=== PATIENT | male | born 1970 | race Caucasian/White ===

== ENCOUNTER 2019-02-13 18:11 | Observation (INO) ==
[2019-02-13] MEDS ORDERED: Ondansetron 4 MG/2 ML VIAL IVP ONE (20:06)
[2019-02-13] MEDS ORDERED: 0.9 % Sodium Chloride 1,000 ML IVC ONE (20:06)
[2019-02-13] MEDS ORDERED: *HR* FentaNYL (PF) 100 MCG/2 ML VIAL IVP ONE (20:06)
--- NOTE | 2019-02-13 20:45 | Emergency Department Note ---
Disposition Clinical Impression: Epigastric pain Nausea and vomiting Qualifiers: Vomiting type: unspecified Vomiting Intractability: unspecified Qualified Code(s): R11.2 - Nausea with vomiting, unspecified Disposition: Still a Patient Condition: Fair Referrals: NONE,PCP [Primary Care Provider] - Forms: ED Satisfaction Letter Time of Disposition: 21:37 Nausea/Vomiting/Diarrhea HPI - General Chief complaint: ED Nausea/Vomiting/Diarrhea Stated complaint: N/V Dizzy Time Seen by Provider: 02/13/19 19:08 Source: patient Mode of arrival: ambulatory Limitations: no limitations Nursing Notes Reviewed: Yes - History of Present Illness HPI Narrative: 48-year-old male present to the emergency department with nausea vomiting and epigastric pain. Patient stated that this pain started about 23 days ago and continued to get worse. He is only medical problems he has history of a stroke does take gabapentin as well as Prilosec. He has not been taking his gabapentin or Prilosec for partially one month as he recently lost insurance has been unable to get the medication. He says he believes that the nausea and vomiting is tied to him not having his gabapentin as this happened one time before when he lost his medication. Patient states the epigastric pain as 6 out 10 nonradiating worse with palpation said it does not change whenever he eats food. Otherwise patient has no other complaints at this time. He has not noted any fevers says the vomiting is nonbilious and nonbloody. Patient otherwise has no other complaints. - Related Data Home Medications Medication Instructions Recorded Confirmed Aspirin 325 mg PO DAILY 12/21/17 02/13/19 Gabapentin [Neurontin] 300 mg PO TID 12/21/17 02/13/19 Allergies Allergy/AdvReac Type Severity Reaction Status Date / Time No Known Allergies Allergy Verified 02/13/19 18:28 All systems ED: reviewed and negative except as stated. Review of Systems: As Per HPI Past Medical History - Past Medical History Attestation: Yes The following information was validated with the patient. Source: patient Medical history: Reports: asthma, CVA, hyperlipidemia, hypertension, kidney stones Surgical history: Reports: arthroscopy, orthopedic, other Psychiatric history: Reports: no psych history - Social History Smoking Status: Current every day smoker Smokeless Tobacco Status: No Alcohol use: Reports: none Drug use: Reports: marijuana Physical Exam - General Limitations: no limitations General appearance: alert, in no apparent distress - Head Head exam: atraumatic, normocephalic, normal inspection - Eye Eye exam: Present: normal appearance, PERRL, EOMI - ENT ENT exam: normal exam, normal oropharynx, mucous membranes moist - Neck Neck exam: Present: normal inspection, full ROM, trachea midline - Chest Chest inspection: Present: normal inspection, symmetric chest wall rise - Respiratory Respiratory exam: Present: normal lung sounds bilaterally - Cardiovascular Cardiovascular exam: Present: regular rate, normal rhythm, normal heart sounds - Abdominal Exam Abdominal exam: Present: soft, Non-Tender. Absent: tenderness, distention, guarding, rebound, rigidity - Extremities Exam Extremities exam: Present: normal inspection, full ROM. Absent: tenderness, pedal edema - Expanded Lower Extremity Exam Neurovascular/Tendon exam: Present: normal capillary refill. Absent: pulse deficit, motor deficit, sensory deficit, tendon deficit - Back Exam Back exam: Present: normal inspection, full ROM. Absent: tenderness, CVA tenderness (R), CVA tenderness (L) - Neurological Exam Neurological exam: Present: alert, oriented X3 - Psychiatric Psychiatric exam: Present: normal affect, normal mood - Skin Skin exam: Present: warm, dry, intact, normal color Course Course Narrative: We will get basic labs including CBC, CMP, lipase as well as troponin EKG per we a CT abdomen and pelvis without contrast as well as CT head. We will give patient IV fluids, Zofran, fentanyl for his pain. EKG also done. Patient okay with this plan. Disposition is still pending results Vital Signs Temperature 98.5 F 02/13/19 18:27 Pulse Rate 97 02/13/19 18:27 Respiratory Rate 16 02/13/19 18:27 Blood Pressure 116/79 02/13/19 18:27 O2 Sat by Pulse Oximetry 98 02/13/19 18:27 Temperature 98.5 F 02/13/19 19:10 Pulse Rate 84 02/13/19 19:16 Respiratory Rate 15 02/13/19 19:16 Blood Pressure 125/89 02/13/19 19:16 O2 Sat by Pulse Oximetry 100 02/13/19 19:16 Oxygen Delivery Oxygen Delivery Room Air Nausea/Vomiting/Diarrhea - [facility] Narrative Medical decision making narrative: Patient is stable at this time. Not all labs are back as well as imaging at the time I am leaving patient will be signed out to Dr. Juarez. Please refer to his note for further plan and disposition. Patient stable at the time of sign out. - Medical Records Medical records reviewed: Yes I reviewed the patient's medical records. - Lab Data Lab results reviewed: Yes I reviewed the patient's lab results. Result diagrams: 02/13/19 20:24 02/13/19 20:24 Lab Results 02/13/19 Range/Units 20:24 Sodium 141 (136-145) mEq/L Potassium 3.4 L (3.5-5.1) mEq/L Chloride 101 (98-107) mEq/L Carbon Dioxide 29 (23-29) mEq/L BUN 20 (6-20) mg/dL Creatinine 1.11 (0.70-1.30) mg/dL Est GFR ( Amer) > 60 (> 60) Est GFR (Non-Af Amer) > 60 (> 60) BUN/Creatinine Ratio 18 (6-26) Glucose 106 H (70-105) mg/dL Calculated Osmolality 295 (280-300) Calcium 10.2 (8.6-10.3) mg/dL Magnesium 2.2 (1.6-2.6) mg/dL Total Bilirubin 0.6 (0.3-1.0) mg/dL AST 16 (13-39) Units/L ALT 15 (7-52) Units/L Alkaline Phosphatase 64 (34-104) Units/L Troponin I < 0.03 (< 0.04) ng/mL Serum Total Protein 7.9 (6.4-8.9) g/dL Albumin 4.9 (3.5-5.7) g/dL Globulin 3.0 (2.4-3.5) g/dL Albumin/Globulin Ratio 1.6 (1.1-2.2) Lipase 16 (11-82) Units/L - Radiology Data Radiology results reviewed: Yes I reviewed the patient's radiology results. - EKG Data EKG attestation: Yes I reviewed and interpreted this EKG. EKG results narrative: EKG done at 2037 review by myself and the attending shows sinus rhythm at a rate of 65, FL 137, QRS 83, QTC 416. No acute ST changes no acute T-wave changes no other signs of ischemia. No old EKG to compare with Attestation Statement - Attestation Attestation: I, Skip Juarez DO, examined this patient [id number] and my medical decision-making was reviewed with Dr. Roderick Muniz, Resident Physician. I agree with the documented findings, disposition and treatment plan as described except to the extent set forth below. I personally supervised and was present for the [place]/critical portions of the procedures completed by the resident documented below. Please see my progress notes for details.
[2019-02-13 21:01] LABS: Alanine Aminotransferase 15 Units/L (7-52); Albumin 4.9 g/dL (3.5-5.7); Albumin/Globulin Ratio 1.6 (1.1-2.2); Alkaline Phosphatase 64 Units/L (34-104); Aspartate Amino Transferase 16 Units/L (13-39); BUN/Creatinine Ratio 18 (6-26); Bilirubin,Total 0.6 mg/dL (0.3-1.0); Blood Urea Nitrogen 20 mg/dL (6-20); Calcium 10.2 mg/dL (8.6-10.3); Carbon Dioxide 29 mEq/L (23-29); Chloride 101 mEq/L (98-107); Glucose 106 mg/dL (70-105); Lipase 16 Units/L (11-82); Magnesium 2.2 mg/dL (1.6-2.6); Osmolality,Calculated 295 (280-300); Potassium 3.4 mEq/L (3.5-5.1); Sodium 141 mEq/L (136-145); Total Protein 7.9 g/dL (6.4-8.9); Troponin I < 0.03 ng/mL (< 0.04); eGFR For Non-African Americans > 60 (> 60)
[2019-02-13 21:17] LABS: Basophils % 0.2 %; Eosinophils % 0.1 %; Hemoglobin 17.5 g/dL (12.9-16.9); Immature Granulocytes % 0.2 % (0-4); Lymphocytes # 2.9 K/mcL (0.6-4.6); Lymphocytes % 24.1 %; Mean Corpuscular HGB Conc 34.3 g/dL (31.6-35.5); Mean Corpuscular Hemoglobin 31.1 pg (28.0-33.3); Mean Corpuscular Volume 90.7 fL (83.0-100.0); Mean Platelet Volume 9.4 fL (9.4-12.4); Monocytes # 0.9 K/mcL (0.0-1.3); Monocytes % 7.7 %; Neutrophils # 8.2 K/mcL (1.6-8.9); Platelet Count 296 K/mcL (140-400); Red Blood Count 5.62 M/mcL (4.19-5.50); Red Cell Distribution Width 12.4 % (11.5-14.5); Segmented Neutrophils % 67.7 %
--- NOTE | 2019-02-13 21:54 | Emergency Department Note ---
Disposition Clinical Impression: Epigastric pain, Enteritis, Ileus Nausea and vomiting Qualifiers: Vomiting type: unspecified Vomiting Intractability: unspecified Qualified Code(s): R11.2 - Nausea with vomiting, unspecified Disposition: Admitted As Inpatient Condition: Fair Referrals: NONE,PCP [Primary Care Provider] - Forms: ED Satisfaction Letter Time of Disposition: 22:25 General Adult HPI - General Chief complaint: ED Nausea/Vomiting/Diarrhea Stated complaint: N/V Dizzy Time Seen by Provider: 02/13/19 19:08 Source: patient Mode of arrival: ambulatory Limitations: no limitations - History of Present Illness Pain Scale: 3 - Related Data Home Medications Medication Instructions Recorded Confirmed Aspirin 325 mg PO DAILY 12/21/17 02/13/19 Gabapentin [Neurontin] 300 mg PO TID 12/21/17 02/13/19 Allergies Allergy/AdvReac Type Severity Reaction Status Date / Time No Known Allergies Allergy Verified 02/13/19 18:28 Past Medical History - Past Medical History Medical history: Reports: asthma, CVA, hyperlipidemia, hypertension, kidney stones Surgical history: Reports: arthroscopy, orthopedic, other Psychiatric history: Reports: no psych history - Social History Smoking Status: Current every day smoker Smokeless Tobacco Status: No Alcohol use: Reports: none Drug use: Reports: marijuana Physical Exam - General Limitations: no limitations General appearance: alert, in no apparent distress Course Vital Signs Temperature 98.5 F 02/13/19 18:27 Pulse Rate 97 02/13/19 18:27 Respiratory Rate 16 02/13/19 18:27 Blood Pressure 116/79 02/13/19 18:27 O2 Sat by Pulse Oximetry 98 02/13/19 18:27 Temperature 98.5 F 02/13/19 19:10 Pulse Rate 69 02/13/19 21:37 Respiratory Rate 15 02/13/19 19:16 Blood Pressure 119/71 02/13/19 21:37 O2 Sat by Pulse Oximetry 97 02/13/19 21:37 Oxygen Delivery Oxygen Delivery Room Air Medical Decision Making - Lab Data Result diagrams: 02/13/19 20:24 02/13/19 20:24 Lab Results 02/13/19 02/13/19 02/13/19 Range/Units 20:24 20:24 20:24 WBC 12.1 H (4.3-11.1) K/mcL RBC 5.62 H (4.19-5.50) M/mcL Hgb 17.5 H (12.9-16.9) g/dL Hct 51.0 H (37.5-50.1) % MCV 90.7 (83.0-100.0) fL MCH 31.1 (28.0-33.3) pg MCHC 34.3 (31.6-35.5) g/dL RDW 12.4 (11.5-14.5) % Plt Count 296 (140-400) K/mcL MPV 9.4 (9.4-12.4) fL Immature Gran % 0.2 (0-4) % Seg Neutrophils % 67.7 % Lymphocytes % 24.1 % Monocytes % 7.7 % Eosinophils % 0.1 % Basophils % 0.2 % Neutrophils # 8.2 (1.6-8.9) K/mcL Lymphocytes # 2.9 (0.6-4.6) K/mcL Monocytes # 0.9 (0.0-1.3) K/mcL Eosinophils # 0.0 (0.0-0.6) K/mcL Basophils # 0.0 (0.0-0.2) K/mcL Sodium 141 (136-145) mEq/L Potassium 3.4 L (3.5-5.1) mEq/L Chloride 101 (98-107) mEq/L Carbon Dioxide 29 (23-29) mEq/L BUN 20 (6-20) mg/dL Creatinine 1.11 (0.70-1.30) mg/dL Est GFR ( Amer) > 60 (> 60) Est GFR (Non-Af Amer) > 60 (> 60) BUN/Creatinine Ratio 18 (6-26) Glucose 106 H (70-105) mg/dL Calculated Osmolality 295 (280-300) Lactic Acid 1.5 (0.5-2.2) mmol/L Calcium 10.2 (8.6-10.3) mg/dL Magnesium 2.2 (1.6-2.6) mg/dL Total Bilirubin 0.6 (0.3-1.0) mg/dL AST 16 (13-39) Units/L ALT 15 (7-52) Units/L Alkaline Phosphatase 64 (34-104) Units/L Troponin I < 0.03 (< 0.04) ng/mL Serum Total Protein 7.9 (6.4-8.9) g/dL Albumin 4.9 (3.5-5.7) g/dL Globulin 3.0 (2.4-3.5) g/dL Albumin/Globulin Ratio 1.6 (1.1-2.2) Lipase 16 (11-82) Units/L Attestation Statement - Attestation Attestation: I, Skip Juarez DO, examined this patient [id number] and my medical decision-making was reviewed with Dr. Roderick Muniz, Resident Physician. I agree with the documented findings, disposition and treatment plan as described except to the extent set forth below. I personally supervised and was present for the [place]/critical portions of the procedures completed by the resident documented below. Please see my progress notes for details. 48-year-old male presents emergency room with onset of dizziness yesterday afternoon. Patient has had symptoms identical to this for the last 8 years since he had a carotid artery dissection that caused him to have a stroke. Patient denies any falls trauma or injury. He has not had any headache or vision change. Denies any nausea vomiting or diarrhea prior to the events yesterday. Denies any fevers or chills. He has not had anybody ill around him. No other acute complaints or symptoms at this time. Vital signs are stable. Patient is denying chest pain or shortness head is atraumatic. Pupils are equal round reactive. Extraocular muscles are intact. Oropharynx is patent. Trachea is midline. Patient has full range of motion of the upper and lower extremities. He has no cerebellar dysfunction or abnormality. Lungs are clear heart is regular. Abdomen is soft. No guarding no rigidity. Patient's neurologic evaluation is benign at this point. He is asymptomatic and has no di zziness on my evaluation. Fluids nausea medication have been provided. Screening CT imaging of the head along with labs include a CBC chemistry and electrodes will be collected at this time. Chest x-ray and EKG will be ordered. Disposition pending full workup and treatment course. See detailed documentation of the physical exam, medical intervention, medical decision- making and disposition in the resident physician's note. No critical care applied the patient's treatment course at this time. 2200 Patient has what appears to be enteritis versus ileus versus early small bowel obstruction on CT scan. Went back to discuss the findings with the patient he does disclose that he has not had a good bowel movement in 4 days. He has had no flatness today. Patient is otherwise stable and responded appropriately to fluids. CT imaging of the head is unremarkable. Discussion was had with the on-call surgeon Dr. Colbert. He agreed with admission of this time for fluid resuscitation nothing by mouth status to see the patient resolves. Recommendation was made for admission the hospital is because of other medical issues and a nonsurgical abdomen at this time. They are happy to see the patient in consult. Patient will be monitored here in emergency department to the hospitalist is contacted and admission process is completed. [id number] Patient was discussed with the hospitalist Dr. Urbina. Detailed review the presentation the symptoms and medical intervention were discussed. Potassium rider was ordered at this time. EKG was reviewed with stable sinus rhythm and no other acute pathology. CT imaging was discussed as well. No other immediate recommendations for workup or intervention were reviewed at this time. Patient will be monitored here in the emergency department until the admission process is completed for early small bowel obstruction versus enteritis and nothing by mouth status and management. Patient family were informed and they are comfortable with this disposition. No other acute issues at this time.
[2019-02-13] MEDS ORDERED: Potassium Chloride 20 MEQ, Lidocaine 1% 2 ML in D5% in Water 250 ML IVPB ONE (22:30)
[2019-02-13] MEDS: 0.9 % Sodium Chloride 1,000 ML IVC SCH (22:36)
[2019-02-14] MEDS: 0.9 % Sodium Chloride 1,000 ML IVC SCH ×2 (06:22→22:53)
--- NOTE | 2019-02-14 06:58 | AcuteCare Surgery Consult Note ---
<MisaelbronwynAllegra N - Last Filed: 02/14/19 07:51> Date of Encounter: 02/14/19 Time of Encounter: 06:46 Assessment and Plan (1) Enteritis Current Visit: Yes Status: Acute History and imaging reviewed with attending and patient was evaluated by acute care surgery team. There is evidence for regional enteritis on CT abdomen and pelvis with ileus versus partial small bowel obstruction. Patient's symptoms have been well controlled overnight, abdomen is benign and nonsurgical. He does report a bowel movement approximately 2 days ago and has a passed gas overnight. 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 Patient admits to large volu me, intractable, nonbloody, nonbilious emesis over the past 4 days. This was associated with epigastric pain and decreased appetite. Patient states similar symptoms when he had a prior carotid artery dissection and was concern for a CVA which prompted him to visit the emergency department. In the emergency department patient was hemodynamically stable. Labs showed hemoconcentration with a mildly elevated hemoglobin and white blood cell count, likely secondary to dehydration. A CT abdomen and pelvis was performed and significant for multiple loops of prominent jejunal small bowel in the left upper quadrant measuring up to 3.8 cm in diameter with air-fluid levels which may be related to enteritis with ileus versus partial small bowel obstruction. Patient was admitted to the hospital with acute care surgery consultation for further recommendations. On meeting the patient today, patient states that his nausea and vomiting have been well controlled overnight and he has not experienced any emesis since admission and his epigastric abdominal pain is much improved. He does admit to one bowel movement approximately 2 days ago which was normal in caliber and consistency. He denies any hematemesis, hematochezia, melena, or hematuria. His abdomen is soft and nontender without guarding or rigidity and there are positive active bowel sounds present. 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 EGD 2015 - Social History Smoking Status: Current every day smoker Smokeless Tobacco Status: No Alcohol use: none Drug use: marijuana Medications and Allergies Aspirin 325 mg PO DAILY 12/21/17 [History] Gabapentin [Neurontin] 300 mg PO TID 12/21/17 [History] Allergy/AdvReac Type Severity Reaction Status Date / Time No Known Allergies Allergy Verified 02/13/19 18:28 Review of Systems All systems PM: The remainder of the systems were reviewed and are negative - Constitutional no chills, no fever(s) - Cardiovascular no chest pain - Respiratory no cough - Gastrointestinal abdominal pain, nausea, vomiting, no change in bowel habits, no change in stool character, no coffee ground emesis, no constipation, no diarrhea, no hematochezia, no melena - Genitourinary no dysuria - Musculoskeletal no arthralgias - Integumentary no rash - Neurological dizziness - Hematologic/Lymphatic no easy bleeding General Surgery Exam Initial Vital Signs Temp Pulse Resp BP Pulse Ox 98.5 F 97 16 116/79 98 02/13/19 18:27 02/13/19 18:27 02/13/19 18:27 02/13/19 18:27 02/13/19 18:27 - General physical appearance well developed, well nourished, no distress - Eyes PERRL, normal ocular movement - ENT normal pinna, normal nares, normal mucosa, no hearing loss - Neck trachea midline - Respiratory normal respiratory effort, clear to percussion, clear to auscultation - Cardiovascular Cardiovascular exam: Present: RRR. Absent: murmurs - Abdomen Abdomen general surgery: Present: bowel sounds present, soft, non tender - Integumentary Integumentary general surgery: Present: warm and dry - Neurologic Present: CN 2-12 grossly intact, normal coordination. Absent: normal sensation - Musculoskeletal Present: normal posture - Psychiatric Psychiatric general surgery: Present: A&Ox3, appropriate Exam Initial Vital Signs Temp Pulse Resp BP Pulse Ox 98.5 F 97 16 116/79 98 02/13/19 18:27 02/13/19 18:27 02/13/19 18:27 02/13/19 18:27 02/13/19 18:27 Results - Labs 02/13/19 20:24 02/13/19 20:24 Abnormal lab results WBC 12.1 K/mcL (4.3-11.1) H 02/13/19 20:24 RBC 5.62 M/mcL (4.19-5.50) H 02/13/19 20:24 Hgb 17.5 g/dL (12.9-16.9) H 02/13/19 20:24 Hct 51.0 % (37.5-50.1) H 02/13/19 20:24 Potassium 3.4 mEq/L (3.5-5.1) L 02/13/19 20:24 Glucose 106 mg/dL (70-105) H 02/13/19 20:24 Diabetes panel 02/13/19 Range/Units 20:24 Sodium 141 (136-145) mEq/L Potassium 3.4 L (3.5-5.1) mEq/L Chloride 101 (98-107) mEq/L Carbon Dioxide 29 (23-29) mEq/L BUN 20 (6-20) mg/dL Creatinine 1.11 (0.70-1.30) mg/dL Glucose 106 H (70-105) mg/dL Calcium 10.2 (8.6-10.3) mg/dL AST 16 (13-39) Units/L ALT 15 (7-52) Units/L Alkaline Phosphatase 64 (34-104) Units/L Albumin 4.9 (3.5-5.7) g/dL Calcium panel 02/13/19 Range/Units 20:24 Calcium 10.2 (8.6-10.3) mg/dL Albumin 4.9 (3.5-5.7) g/dL Pituitary panel 02/13/19 Range/Units 20:24 Sodium 141 (136-145) mEq/L Potassium 3.4 L (3.5-5.1) mEq/L Chloride 101 (98-107) mEq/L Carbon Dioxide 29 (23-29) mEq/L BUN 20 (6-20) mg/dL Creatinine 1.11 (0.70-1.30) mg/dL Glucose 106 H (70-105) mg/dL Calcium 10.2 (8.6-10.3) mg/dL Adrenal panel 02/13/19 Range/Units 20:24 Sodium 141 (136-145) mEq/L Potassium 3.4 L (3.5-5.1) mEq/L Chloride 101 (98-107) mEq/L Carbon Dioxide 29 (23-29) mEq/L BUN 20 (6-20) mg/dL Creatinine 1.11 (0.70-1.30) mg/dL Glucose 106 H (70-105) mg/dL Calcium 10.2 (8.6-10.3) mg/dL Total Bilirubin 0.6 (0.3-1.0) mg/dL AST 16 (13-39) Units/L ALT 15 (7-52) Units/L Alkaline Phosphatase 64 (34-104) Units/L Albumin 4.9 (3.5-5.7) g/dL All other labs normal. Consult Discharge Plan - Plan Referrals: NONE,PCP [Primary Care Provider] - <Erik Colbert - Last Filed: 02/14/19 09:53> Date of Encounter: 02/14/19 Review of Systems All systems PM: The remainder of the systems were reviewed and are negative General Surgery Exam Initial Vital Signs Temp Pulse Resp BP Pulse Ox 98.5 F 97 16 116/79 98 02/13/19 18:27 02/13/19 18:27 02/13/19 18:27 02/13/19 18:27 02/13/19 18:27 Exam Initial Vital Signs Temp Pulse Resp BP Pulse Ox 98.5 F 97 16 116/79 98 02/13/19 18:27 02/13/19 18:27 02/13/19 18:27 02/13/19 18:27 02/13/19 18:27 Results - Labs 02/14/19 08:53 02/14/19 08:53 Abnormal lab results WBC 12.1 K/mcL (4.3-11.1) H 02/13/19 20:24 RBC 5.62 M/mcL (4.19-5.50) H 02/13/19 20:24 Hgb 17.5 g/dL (12.9-16.9) H 02/13/19 20:24 Hct 51.0 % (37.5-50.1) H 05/06/19 20:24 MPV 9.0 fL (9.4-12.4) L 02/14/19 08:53 PT 12.5 Seconds (9.4-12.1) H 02/14/19 08:53 Potassium 3.4 mEq/L (3.5-5.1) L 02/13/19 20:24 Glucose 106 mg/dL (70-105) H 02/13/19 20:24 6.3 g/dL (6.4-8.9) L 02/14/19 08:53 2.3 g/dL (2.4-3.5) L 02/14/19 08:53 Diabetes panel 02/13/19 02/14/19 Range/Units 20:24 08:53 Sodium 141 141 (136-145) mEq/L Potassium 3.4 L 3.7 (3.5-5.1) mEq/L Chloride 101 107 (98-107) mEq/L Carbon Dioxide 29 27 (23-29) mEq/L BUN 20 20 (6-20) mg/dL Creatinine 1.11 0.99 (0.70-1.30) mg/dL Glucose 106 H 96 (70-105) mg/dL Calcium 10.2 8.9 (8.6-10.3) mg/dL AST 16 20 (13-39) Units/L ALT 15 12 (7-52) Units/L Alkaline Phosphatase 64 57 (34-104) Units/L Albumin 4.9 4.0 (3.5-5.7) g/dL Calcium panel 02/13/19 02/14/19 Range/Units 20:24 08:53 Calcium 10.2 8.9 (8.6-10.3) mg/dL Phosphorus 2.9 (2.7-4.5) mg/dL Albumin 4.9 4.0 (3.5-5.7) g/dL Pituitary panel 02/13/19 02/14/19 Range/Units 20:24 08:53 Sodium 141 141 (136-145) mEq/L Potassium 3.4 L 3.7 (3.5-5.1) mEq/L Chloride 101 107 (98-107) mEq/L Carbon Dioxide 29 27 (23-29) mEq/L BUN 20 20 (6-20) mg/dL Creatinine 1.11 0.99 (0.70-1.30) mg/dL Glucose 106 H 96 (70-105) mg/dL Calcium 10.2 8.9 (8.6-10.3) mg/dL Adrenal panel 02/13/19 02/14/19 Range/Units 20:24 08:53 Sodium 141 141 (136-145) mEq/L Potassium 3.4 L 3.7 (3.5-5.1) mEq/L Chloride 101 107 (98-107) mEq/L Carbon Dioxide 29 27 (23-29) mEq/L BUN 20 20 (6-20) mg/dL Creatinine 1.11 0.99 (0.70-1.30) mg/dL Glucose 106 H 96 (70-105) mg/dL Calcium 10.2 8.9 (8.6-10.3) mg/dL Total Bilirubin 0.6 0.7 (0.3-1.0) mg/dL AST 16 20 (13-39) Units/L ALT 15 12 (7-52) Units/L Alkaline Phosphatase 64 57 (34-104) Units/L Albumin 4.9 4.0 (3.5-5.7) g/dL All other labs normal. - Attending Attestation I examined this patient and my medical decision-making was reviewed with the Resident Physician. I agree with the documented findings, disposition and treatment plan as described except to the extent set forth below. The patient is seen and evaluated today on acute care surgery rounds. I personally examined the patient and reviewed CAT scan of the abdomen. Clinical course and radiologic findings are consistent with regional enteritis likely infectious in nature. The patient is passing flatus this morning. We will start clear liquids. Abdominal examination is totally negative. No indication for surgery at this time. Erik Colbert MD FACS
[2019-02-14] MEDS ORDERED: Naloxone 0.4 MG/ML INJ IVP PRN (07:22)
[2019-02-14] MEDS ORDERED: 0.9 % Sodium Chloride 1,000 ML IVC SCH (07:30)
--- NOTE | 2019-02-14 08:27 | Internal Med History&Physical ---
Date of Encounter: 02/14/19 Time of Encounter: 07:00 Internal Medicine - H&P: HPI Chief complaint: nausea and vomiting Admitted From: Home Plans for Post Hospital Care: Home History of present illness: Mr. Nicolas is a 48 year old male with history of carotid artery dissection without any significant residual weakness presented to the ED with comaplint of Nausea and vomiting. his symptoms started about 3 weeks ago and have progressively worsened. he has had similar symptoms in annelise past. he was still able to take po intake howoever for the past few days he has started to vomit both solids and liquids. he denies hematemesis. in addition to above he complains of epigastric abdominal pain that he describes as burning, non- radiating and 6/10 on severity. he denies fever, chills, chest pain, headache, vision changes, abdominal trauma, hematemesis, hematochezia, palpitations, SOB, leg edema, PND or orthopnea. denies sick contacts, no recent ABx use, noone else at home is experiencing similar symptoms. he smokes marijuana everyday. and reports that he has had multiple similar symptoms in the past that self resolved. currently he denies nausea or vomiting, is passing flatus however no bowel movement. while in the ED CT A/P showed partial obstruction vs enteritis with ileus, surgery was consulted. he has had carotid dissection many years ago was on "a bunch" of medication however he stopped them by himself. his only medication is ASA and gabapentin which he has not filled due to insurance/PCP problems. 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 EGD 2016 - Social History Smoking Status: Current every day smoker Smokeless Tobacco Status: No Alcohol use: none Drug use: marijuana Internal Medicine - H&P: Meds Aspirin 325 mg PO DAILY 12/21/17 [History] Gabapentin [Neurontin] 300 mg PO TID 12/21/17 [History] Allergy/AdvReac Type Severity Reaction Status Date / Time No Known Allergies Allergy Verified 02/13/19 18:28 All Systems PM: A 10-system review of systems was performed and is negative for pertinent findings except as documented above in the HPI. - Constitutional Vitals: Temp Pulse Resp BP Pulse Ox 98.3 F 92 14 110/60 94 02/14/19 04:24 02/14/19 04:24 02/14/19 04:24 02/14/19 04:24 02/14/19 04:24 Exam: General: Patient is alert, oriented, no acute distress, Head: atraumatic, normocephalic, Eye: normal appearance, PERRL, no scleral icterus, no conjunctival injection ENT: mucous membranes moist, normal external ear exam Neck: normal inspection, trachea midline, full ROM, Chest: normal inspection, symmetric chest rise Respiratory: Good respiratory effort. Bilateral breath sounds are clear without wheezing, crackles, or rhonchi. Cardiovascular: Regular rate and rhythm. s1 and s2 No clicks, rubs, gallops, or murmors. Abdomen: Bowel sounds present normoactive x-4 quadrants. Abdomen is soft, nondistended. no Epigastric tenderness. No guarding or rebound. No organomeg maribeth noted, obese musculoskeletal: Spontaneously moving all extremities. no edema, no calf tenderness Skin: warm, dry, intact. Neuro: Alert and oriented x3 no focal deficit Psych: Patient's affect is normal Internal Med - H&P Results - Labs CBC & Chem 7: 02/13/19 20:24 02/13/19 20:24 Labs: Short CBC 02/13/19 Range/Units 20:24 WBC 12.1 H (4.3-11.1) K/mcL Hgb 17.5 H (12.9-16.9) g/dL Hct 51.0 H (37.5-50.1) % Plt Count 296 (140-400) K/mcL Neutrophils # 8.2 (1.6-8.9) K/mcL BMP 02/13/19 20:24 Sodium 141 Potassium 3.4 L Chloride 101 Carbon Dioxide 29 BUN 20 Creatinine 1.11 Glucose 106 H Calcium 10.2 Cardiac Enzymes 02/13/19 Range/Units 20:24 Troponin I < 0.03 (< 0.04) ng/mL Liver Function 02/13/19 Range/Units 20:24 Total Bilirubin 0.6 (0.3-1.0) mg/dL AST 16 (13-39) Units/L ALT 15 (7-52) Units/L Alkaline Phosphatase 64 (34-104) Units/L Albumin 4.9 (3.5-5.7) g/dL - EKG Data -: EKG Interpreted by Myself (sinus, early repolarization abnormality) - EKG Data Prior EKG available for review: yes When compared to previous EKG: there is no significant change - Impressions ITS Impressions Abdomen/Pelvis CT 02/13/19 19:22 IMPRESSION: Multiple loops of prominent jejunal small bowel in the left upper quadrant may relate to enteritis with ileus versus partial small bowel obstruction. Normal appendix. No obstructive uropathy. No urinary calculi or hydronephrosis. Prominent prostate gland. D/ / Luís Huber / Luís Huber Interpreting Provider: Luís Huber Head CT 02/13/19 20:27 IMPRESSION: 1. No acute intracranial abnormality. 2. Left occipital lobe encephalomalacia likely from prior infarct. D/ / Jason Doan MD / Jason Doan MD Interpreting Provider: Jason Doan MD - Assessment and Plan (1) Enteritis Current Visit: Yes Status: Acute Assessment and plan: enteritis with ileus versus partial small bowel obstruction ?viral vs marijuana induced lipase WNL surgery on board continue IVF was started on clear liquid diet follow electrolytes and replace accordingly serial abdominal exam utox zofran for Nausea q8H PRN (2) Ileus Current Visit: Yes Status: Acute Assessment and plan: management as above (3) Dehydration Current Visit: Yes Status: Acute Assessment and plan: secondary to vomiting labs with hemoconcentration continue IVF (4) DVT prophylaxis Current Visit: Yes Status: Acute Assessment and plan: heparin sc - Time Spent With Patient Total time spent is greater than 50% in coordination of care (as documented) at patient's floor/unit and/or counseling patient:
[2019-02-14] MEDS ORDERED: Ondansetron 4 MG/2 ML VIAL IVP PRN (08:34)
[2019-02-14 09:10] LABS: Basophils % 0.4 %; Eosinophils % 0.5 %; Hematocrit 44.8 % (37.5-50.1); Immature Granulocytes % 0.2 % (0-4); Lymphocytes # 2.6 K/mcL (0.6-4.6); Mean Corpuscular HGB Conc 33.7 g/dL (31.6-35.5); Mean Corpuscular Hemoglobin 31.1 pg (28.0-33.3); Mean Corpuscular Volume 92.2 fL (83.0-100.0); Monocytes # 0.7 K/mcL (0.0-1.3); Monocytes % 7.7 %; Neutrophils # 5.2 K/mcL (1.6-8.9); Platelet Count 233 K/mcL (140-400); Red Blood Count 4.86 M/mcL (4.19-5.50); Red Cell Distribution Width 12.4 % (11.5-14.5); Segmented Neutrophils % 61.2 %
[2019-02-14 09:12] LABS: Hemoglobin 15.1 g/dL (12.9-16.9)
[2019-02-14 09:17] LABS: INR 1.1; Prothrombin Time 12.5 Seconds (9.4-12.1)
[2019-02-14 09:28] LABS: Alanine Aminotransferase 12 Units/L (7-52); Albumin/Globulin Ratio 1.7 (1.1-2.2); Alkaline Phosphatase 57 Units/L (34-104); Aspartate Amino Transferase 20 Units/L (13-39); BUN/Creatinine Ratio 20 (6-26); Bilirubin,Total 0.7 mg/dL (0.3-1.0); Blood Urea Nitrogen 20 mg/dL (6-20); Calcium 8.9 mg/dL (8.6-10.3); Carbon Dioxide 27 mEq/L (23-29); Chloride 107 mEq/L (98-107); Globulin 2.3 g/dL (2.4-3.5); Glucose 96 mg/dL (70-105); Osmolality,Calculated 294 (280-300); Phosphorous 2.9 mg/dL (2.7-4.5); Potassium 3.7 mEq/L (3.5-5.1); Sodium 141 mEq/L (136-145); Total Protein 6.3 g/dL (6.4-8.9); eGFR For Non-African Americans > 60 (> 60)
[2019-02-14] MEDS: *HR* Heparin 5,000 UNIT/ML VIAL SQ SCH ×2 (09:34→14:06)
--- NOTE | 2019-02-14 11:06 | Electrocardiograph Report ---
[place] [id number] Test Date: 2019-02-13 Pat Name: Ez Nicolas Department: EXAM19 Room: 3A32 Gender: M [employer]: : 1970 Requested By: Roderick Muniz Order Number: [id number] Reading MD: Elizabeth Acosta Measurements Intervals [place] Rate: 65 P: 18 RI: 137 QRS: 70 QRSD: 83 T: 71 QT: 400 QTc: 416 Interpretive Statements Sinus rhythm RSR' in V1 or V2, probably normal variant Electronically Signed On 02-14-2019 11:04:49 EDT by Elizabeth Acosta
[2019-02-14 12:24] LABS: Amphetamine Screen,Urine Negative ng/mL (Cutoff=1000); Barbiturate Screen,Urine Negative ng/mL (Cutoff=200); Benzodiazepines Screen,Urine Negative ng/mL (Cutoff=200); Cannabinoid Screen,Urine Positive ng/mL (Cutoff = 50); Cocaine Screen,Urine Negative ng/mL (Cutoff= 300); Opiate Screen,Urine Negative ng/mL (Cutoff=300); Phencyclidine Screen,Urine Negative ng/mL (Cutoff=25)
--- NOTE | 2019-02-14 13:04 | Event Note ---
<Allegra White - Last Filed: 02/14/19 13:05> Date of Encounter: 02/14/19 Time of Encounter: 13:00 Patient reevaluated today after his lunch. He tolerated his clear liquid diet without difficulty. Denies any nausea or vomiting. He was having a bowel movement upon reevaluation and was actively passing gas. States this was his second bowel movement of the day. No hematochezia, melena, or diarrhea. Patient is clinically improving. Advance diet as tolerated. Surgery will sign off. Please reconsult if there are any questions. <Erik Colbert - Last Filed: 02/14/19 13:12> Date of Encounter: 02/14/19 The patient is having normal bowel movements. At this point there is no evidence for bowel obstruction. Surgery will sign off. Erik Colbert MD FACS
[2019-02-14] MEDS: Gabapentin 300 MG CAPSULE PO SCH ×2 (14:06→21:43)
[2019-02-15] MEDS: *HR* Heparin 5,000 UNIT/ML VIAL SQ SCH ×3 (05:14→13:20)
[2019-02-15 06:26] LABS: Hematocrit 44.4 % (37.5-50.1); Hemoglobin 14.8 g/dL (12.9-16.9); Mean Corpuscular HGB Conc 33.3 g/dL (31.6-35.5); Mean Corpuscular Hemoglobin 30.9 pg (28.0-33.3); Mean Corpuscular Volume 92.7 fL (83.0-100.0); Mean Platelet Volume 9.6 fL (9.4-12.4); Platelet Count 236 K/mcL (140-400); Red Blood Count 4.79 M/mcL (4.19-5.50); Red Cell Distribution Width 12.2 % (11.5-14.5)
[2019-02-15 06:41] LABS: BUN/Creatinine Ratio 13 (6-26); Blood Urea Nitrogen 12 mg/dL (6-20); Calcium 8.9 mg/dL (8.6-10.3); Carbon Dioxide 25 mEq/L (23-29); Chloride 106 mEq/L (98-107); Cholesterol 166 mg/dL (< 200); Glucose 106 mg/dL (70-105); HDL Cholesterol 33 mg/dL (40-59); LDL Cholesterol,Calculated 107 mg/dL (0-99); Osmolality,Calculated 288 (280-300); Potassium 3.6 mEq/L (3.5-5.1); Sodium 139 mEq/L (136-145); Triglycerides 129 mg/dL (< 150); eGFR For Non-African Americans > 60 (> 60)
[2019-02-15] MEDS: Gabapentin 300 MG CAPSULE PO SCH (08:29)
[2019-02-15] MEDS ORDERED: Aspirin 325 MG TABLET PO SCH (09:00)
[2019-02-15] MEDS: 0.9 % Sodium Chloride 1,000 ML IVC SCH (10:05)
[2019-02-15 11:03] VITALS: BP 121/71
--- NOTE | 2019-02-15 13:20 | Discharge Summary ---
- NOTES TO OUTPATIENT PROVIDER Notes to Outpatient Provider: Follow-up with PCP for GERD management Date of Encounter: 02/15/19 Time of Encounter: 11:00 - Discharge Diagnosis (1) Enteritis Priority: Primary Status: Acute (2) Ileus Priority: Primary Status: Acute (3) Dehydration Priority: Secondary Status: Acute Hospital course: Patient is a 48-year-old male with past medical history significant for carotid artery dissection without any significant residual weakness presented to the ER with nausea and vomiting. Patient states that his symptoms started about 3 weeks ago and have progressively worsened; he admits to similar symptoms in the past over the last several years. Patient states that he has been worked up by different physicians with no known etiology. In the ER, CT A/P showed partial obstruction vs enteritis with ileus, therefore surgery was consulted. During patients hospital stay Gen. Surgery was consulted and small bowel obstruction was ruled out due to patient having bowel movements and tolerating by mouth. Patients symptoms has resolved and was educated to take acid reflux medicine as recommended. Patient will be discharged on an oral PPI for a three- month supply and to follow-up with primary care physician as an outpatient. - Time Spent with Patient Total time spent providing and/or coordinating discharge services: Time spent: Less than 30 minutes - Discharge Medications Prescriptions: Continued Aspirin 325 mg PO DAILY Omeprazole [PriLOSEC] 20 mg PO DAILY #30 capsule. Home Medications: Aspirin 325 mg PO DAILY 12/21/17 [History] Omeprazole [PriLOSEC] 20 mg PO DAILY #30 capsule. 02/15/19 [Rx] Allergies/Adverse Reactions: Allergy/AdvReac Type Severity Reaction Status Date / Time No Known Allergies Allergy Verified 02/13/19 18:28 Date of admission: 02/13/19 22:31 Primary care physician: PCP NONE Consults: 02/13/19 22:09 Consult to Surgery [CONS] Stat Consulting Provider: Acute Care Surgery Reason for Consult: ileus, enteritis Call Completed: Yes - Constitutional Vitals: Temp Pulse Resp BP Pulse Ox 98.4 F 64 16 121/71 96 02/15/19 11:02 02/15/19 11:02 02/15/19 11:02 02/15/19 11:02 02/15/19 11:02 Exam: Gen.: Nonacute distress, alert and oriented 3 Abdomen: Soft, nontender and nondistended with positive bowel sounds Skin: Normal color - Patient Status Disposition: Home, Self-Care Condition: Fair - Discharge Instructions Follow Up With: Melvin Dudley DO [Resident] - 02/23/19 2:00 pm (New patient appointment and hospital follow up. Office will send out packet prior to visit with all information and will advise patient of this. ) NONE,PCP [Primary Care Provider] -
== END 2019-02-15 13:38 | disposition home or self-care (01) ==
LOC: EMEROOARM 18:11 → 3ANU 18:11 → SUATTDRO 22:31 → 3ANU 23:52
PROVIDERS: ADMIT Pediatrics; ATTEND Hospitalist